=== PATIENT | male | born 1990 | race Caucasian/White ===

== ENCOUNTER 2018-02-08 14:55 | Emergency (ER) | payer OTHER ==
[~2018-02-08] VITALS: Ht 182.9 cm; Wt 90.7 kg
[~2018-02-08 14:55] MED LIST: BACTRIM DS TAB1 EACH PO; CARAFATE 1 GM TA1 GM PO; CEPHALEXIN 500500 M3 PO; FLEXERIL PO; HYDROCODONE-AP1 EAC6 PO; IBUPROFEN 800800 M1 PO; NORCO 5-325 TA1 EACH PO; PEPCID20 MG PO
[2018-02-08] MEDS ORDERED: ADDERALL 20 MG20 MG PO (15:11)
[2018-02-08] MEDS ORDERED: XANAX1 MG PO (15:11)
[2018-02-08] MEDS ORDERED: FLEXERIL PO (16:38)
[2018-02-08] MEDS ORDERED: NORCO 5-325 TA1 EACH PO (16:38)
[2018-02-08 16:55] VITALS: BP 124/49
== END 2018-02-08 16:55 | disposition home or self-care (01) ==
LOC: M.ERS 14:55
DX: M54.5 Low back pain (principal); F17.210 Nicotine dependence, cigarettes, uncomplicated

== ENCOUNTER 2019-01-09 11:23 | Emergency (ER) | payer OTHER ==
[~2019-01-09 11:23] MED LIST changes: +ADDERALL 20 MG20 MG PO; +XANAX1 MG PO
== END 2019-01-09 12:14 ==
LOC: M.ERS 11:23
DX: Z02.89 Encounter for other administrative examinations (principal)

== ENCOUNTER 2020-10-27 14:11 | Emergency (ER) | payer OTHER ==
[~2020-10-27] VITALS: Ht 182.9 cm; Wt 90.7 kg
[2020-10-27 14:19] VITALS: BP 130/70
== END 2020-10-27 14:25 ==
LOC: M.ERS 14:11
DX: F11.10 Opioid abuse, uncomplicated (principal); F41.9 Anxiety disorder, unspecified; F17.210 Nicotine dependence, cigarettes, uncomplicated